=== PATIENT | female | born 1995 | race African-American/Black ===

== ENCOUNTER 2021-09-18 16:16 | Emergency (ER) | payer MEDICAID ==
[~2021-09-18] VITALS: Ht 172.7 cm; Wt 68.0 kg
[2021-09-18] MEDS ORDERED: LORAZEPAM INJ 2 MG/ML VIAL ONE (16:24)
[2021-09-18] MEDS ORDERED: diphenhydrAMINE HCL 50 MG/ML VIAL ONE (16:24)
[2021-09-18] MEDS ORDERED: HALOPERIDOL LACTATE INJ 5 MG/ML VIAL ONE (16:24)
[2021-09-18] MEDS ORDERED: IV NS 0.9% 1,000 ML IV ONE (16:30)
[2021-09-18] MEDS ORDERED: HALOPERIDOL LACTATE INJ 5 MG/ML VIAL IM ONE (16:30)
[2021-09-18] MEDS ORDERED: LORAZEPAM INJ 2 MG/ML VIAL IM ONE (16:30)
[2021-09-18] MEDS ORDERED: diphenhydrAMINE HCL 50 MG/ML VIAL IM ONE (16:30)
--- NOTE | 2021-09-18 16:33 | NUR ---
SEEN BY DR. CLIFFORD WITH ORDERS FOR: BENADRYL, ATIVAN AND HALDOL IM - ALL GIVEN - RIGHT ANTERIOR THIGH
--- NOTE | 2021-09-18 16:35 | NUR ---
RECEIVED PT 35YRS FEMALE CAME BY PRAMDIC CRYING AND SCREAMING RESPIRTION SPON AND EASY PICK HERE UP FROM [employer]OB TRANSFER PT TO RIOS CHECKED PT PACKET NO MATELE MEDITION GIVEN TO ASIF HERE TO CAME DOWN
--- NOTE | 2021-09-18 17:10 | NUR ---
pt now more alert and calm know here name fallow comand and cooprative
--- NOTE | 2021-09-18 17:20 | NUR ---
BLOOD DROW BY LAB TACH
[2021-09-18 17:27] LABS: BASOPHILS % (AUTO) 0.3 % (0.0-2.0); HEMATOCRIT 40 % (33-45); HEMOGLOBIN 13.4 g/dL (11.5-14.8); LYMPHOCYTES # (AUTO) 1.1 K/uL (0.8-4.8); LYMPHOCYTES % (AUTO) 14.8 % (20.0-44.0); MEAN CORPUSCULAR HGB CONC 34 g/dl (31.0-36.0); MEAN CORPUSCULAR VOLUME 84 fL (82-100); MONOCYTES # (AUTO) 1.1 K/uL (0.1-1.30); MONOCYTES % (AUTO) 13.9 % (2.0-12.0); NEUTROPHILS # (AUTO) 5.4 K/uL (1.8-8.9); PLATELET COUNT (AUTO) 405 K/uL (150-450); RED BLOOD CELL COUNT(AUTO) 4.69 MIL/uL (4.0-5.2); WHITE BLOOD COUNT (AUTO) 7.7 K/uL (4.3-11.0)
[2021-09-18 17:46] LABS: CALCIUM, SERUM 8.7 mg/dL (8.5-10.1); CARBON DIOXIDE 28 mmol/L (21-32); CHLORIDE 100 mmol/L (98-107); CREATININE 0.8 mg/dL (0.6-1.3); GLUCOSE 91 mg/dL (74-106); POTASSIUM 3.5 mmol/L (3.5-5.1); SODIUM SERUM 137 mmol/L (136-145); UREA NITROGEN, BLOOD 12 mg/dL (7-18)
[2021-09-18 18:02] LABS: ALANINE AMINOTRANSFERASE 20 U/L (12-78); ALBUMIN 3.2 g/dL (3.4-5.0); ALKALINE PHOSPHATASE 74 U/L (46-116); ASPARTATE AMINOTRANSFERASE 25 U/L (15-37); BILIRUBIN,DIRECT 0.1 mg/dL (0.0-0.2); BILIRUBIN,TOTAL 0.6 mg/dL (0.2-1.0); TOTAL PROTEIN, SERUM 8.2 g/dL (6.4-8.2)
[2021-09-18 18:10] LABS: ACETAMINOPHEN < 2 ug/ml (10-30); ALCOHOL, BLOOD < 3 mg/dL (0-0)
--- NOTE | 2021-09-18 18:12 | NUR ---
I&O CATHETER DONE FR # 15 RED RUBBER CATHETER OUT OUT 250 ML YELLOW CLEAR COLOR UA SENT TO LAB
--- NOTE | 2021-09-18 18:30 | NUR ---
PT ASLEEPY AND BACK TO SLEEP WHEN CALLED NAME
--- NOTE | 2021-09-18 18:55 | NUR ---
PT CALM AND EYE CONTACT [employer] CALLED PT SAID NUME BUT NOT DAITE OF
--- NOTE | 2021-09-18 19:14 | NUR ---
HAND OF TO TASHA RN PT CALM AND ASLEEPY VS STABLE
--- NOTE | 2021-09-18 19:17 | NUR ---
MANAGER IT TRAINING AT PT'S BEDSIDE
--- NOTE | 2021-09-18 19:19 | NUR ---
RECEIVED REPORT FROM EDD DIXON FOR NAJMA
--- NOTE | 2021-09-18 19:22 | NUR ---
COVID ANTIGEN SWAB COLLECTED AND SENT TO LAB
[2021-09-18 19:51] LABS: BILIRUBIN,URINE NEGATIVE (NEGATIVE); COLOR,URINE YELLOW (YELLOW); LEUKOCYTE ESTERASE ,URINE NEGATIVE (NEGATIVE); NITRITE, URINE NEGATIVE (NEGATIVE); PH,URINE 5.5 (5.0-8.0); PROTEIN,URINE 30 mg/dl (NEGATIVE); UGLUCOSE NEGATIVE (NEGATIVE); UROBILINOGEN,URINE 0.2 EU/dL (0.2)
--- NOTE | 2021-09-18 19:57 | NUR ---
PT TAKEN TO CT VIA HUSEYIN
[2021-09-18 19:59] LABS: BACTERIA,URINE RARE /HPF (None Seen); RBC,URINE 0-2 /HPF (0-2); SQUAMOUS EPITHELIAL CELL,UR 0-2 /HPF (None Seen)
[2021-09-18 20:00] LABS: MUCUS,URINE Few /LPF (None Seen)
--- NOTE | 2021-09-18 20:05 | NUR ---
PT BACK FROM CT VIA HUSEYIN
--- NOTE | 2021-09-19 04:06 | NUR ---
PT AMBULATORY TO RESTROOM WITH STEADY GAIT. ADLS DONE.
--- NOTE | 2021-09-19 04:50 | NUR ---
Patient discharged to home in stable condition. Written and verbal after care instructions given. Patient verbalizes understanding of instruction. pt ambulatory with a steady gait
[2021-09-19 05:29] VITALS: BP 125/64
== END 2021-09-19 04:50 | disposition home or self-care (01) ==
LOC: EDBD 16:18 → ER 16:18
DX: R41.82 Altered mental status, unspecified (principal); F15.129 Other stimulant abuse with intoxication, unspecified; R00.0 Tachycardia, unspecified; Z20.822 Contact with and (suspected) exposure to COVID-19
CPT/HCPCS: 36415; 70450; 80048; 80076; 80143; 80307; 80320; 81001; 82550; 82553; 84703; 85025; 87426; 93005; 96360; 96372 ×2; 99291; C9803; J1200; J1630; J2060; J7030; G0480

== ENCOUNTER 2021-09-20 08:21 | Emergency (ER) | payer MEDICAID ==
[~2021-09-20] VITALS: Ht 170.2 cm; Wt 81.6 kg
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
--- NOTE | 2021-09-20 08:39 | NUR ---
MT AT BEDSIDE
[2021-09-20 08:51] LABS: BASOPHILS # (AUTO) 0.1 K/uL (0.0-0.2); BASOPHILS % (AUTO) 0.6 % (0.0-2.0); EOSINOPHILS % (AUTO) 0.6 % (0.0-6.0); HEMATOCRIT 35 % (33-45); HEMOGLOBIN 11.8 g/dL (11.5-14.8); LYMPHOCYTES # (AUTO) 1.2 K/uL (0.8-4.8); LYMPHOCYTES % (AUTO) 12.9 % (20.0-44.0); MEAN CORPUSCULAR HGB CONC 34 g/dl (31.0-36.0); MEAN CORPUSCULAR VOLUME 85 fL (82-100); MONOCYTES # (AUTO) 1.3 K/uL (0.1-1.30); MONOCYTES % (AUTO) 13.5 % (2.0-12.0); NEUTROPHILS # (AUTO) 6.8 K/uL (1.8-8.9); NEUTROPHILS % (AUTO) 72.4 % (43.0-81.0); PLATELET COUNT (AUTO) 346 K/uL (150-450); RED BLOOD CELL COUNT(AUTO) 4.15 MIL/uL (4.0-5.2); WHITE BLOOD COUNT (AUTO) 9.4 K/uL (4.3-11.0)
--- NOTE | 2021-09-20 09:08 | NUR ---
UNABLE TO PROVIDE URINE AT THIS TIME, WILL TRY AGAIN
[2021-09-20 09:10] LABS: CALCIUM, SERUM 8.2 mg/dL (8.5-10.1); CREATININE 0.8 mg/dL (0.6-1.3); POTASSIUM 3.4 mmol/L (3.5-5.1)
--- NOTE | 2021-09-20 09:14 | NUR ---
pt in [place]
--- NOTE | 2021-09-20 10:20 | NUR ---
COVID SAMPLE OBTAINED AND SENT TO LAB
[2021-09-20] MEDS ORDERED: CEFTRIAXONE 1 G in IV D5W 50 ML IV ONE (10:30)
[2021-09-20] MEDS ORDERED: CEFTRIAXONE 1GM BAG (ER ONLY) 50 ML IV ONE (10:31)
--- NOTE | 2021-09-20 10:40 | NUR ---
BLOOD CULTURES AND LACTIC ACID OBTAINED AND SENT TO LAB
--- NOTE | 2021-09-20 10:47 | NUR ---
UNABLE TO PROVIDE URINE AT THIS TIME, WILL TRY AGAIN LATER
[2021-09-20] MEDS ORDERED: VANCOMYCIN 1 GM in IV D5W 250 ML IV ONE (11:30)
--- NOTE | 2021-09-20 12:29 | NUR ---
[facility]ED [facility] [phone] [facility] AT [facility] TIME.
--- NOTE | 2021-09-20 12:34 | NUR ---
CALLED [facility] [phone] NARESH GROVES [phone]
--- NOTE | 2021-09-20 12:48 | NUR ---
[facility] [phone] [facility] [phone]
--- NOTE | 2021-09-20 13:10 | NUR ---
[facility] [phone] NO HAND SPECIALISTS AVAILABLE PER [facility].
--- NOTE | 2021-09-20 13:13 | NUR ---
[facility] CALLED NO BED AVAILABLE PER BRAIN.
--- NOTE | 2021-09-20 16:18 | NUR ---
CALLED [facility] TRANSFER [phone] [facility] DOES NOT HAVE HAND SPECIALIST.
--- NOTE | 2021-09-20 16:36 | NUR ---
CALLED [facility] [phone] [facility] DOES NOT HAVE HAND SPECIALIST WELL
[2021-09-20 17:10] LABS: BILIRUBIN,URINE NEGATIVE (NEGATIVE); COLOR,URINE YELLOW (YELLOW); LEUKOCYTE ESTERASE ,URINE SMALL (NEGATIVE); NITRITE, URINE NEGATIVE (NEGATIVE); PROTEIN,URINE NEGATIVE (NEGATIVE); UGLUCOSE NEGATIVE (NEGATIVE)
[2021-09-20 17:19] LABS: BACTERIA,URINE 2+ /HPF (None Seen); RBC,URINE 0-2 /HPF (0-2); SQUAMOUS EPITHELIAL CELL,UR Few /HPF (None Seen); WBC,URINE 81-100 /HPF (0-3)
--- NOTE | 2021-09-20 18:08 | NUR ---
CALLED [facility] [phone] OBED FAXED CLINICALS TO [phone]
--- NOTE | 2021-09-20 18:19 | NUR ---
CALLED [facility] TRANSFER CENTER [phone] GABRIELLE FAXED CLINICALS TO [phone]
--- NOTE | 2021-09-20 18:40 | NUR ---
Jonny bridges in [facility] - 09/20/21 at 1846 by [place] URINE SAMPLE OBTAINED AND SENT TO LAB
--- NOTE | 2021-09-20 18:41 | NUR ---
GABRIELLE FROM [facility] NO SPECIALIST AVAILABLE.
--- NOTE | 2021-09-20 19:29 | NUR ---
[id number] VJ IMAGE OF THE HAND,
--- NOTE | 2021-09-20 19:44 | NUR ---
SEND THE PICTURE OF THE HAND AND R HAND IMAGING TO [facility]
[2021-09-20] MEDS ORDERED: OLANZAPINE 10 MG VIAL IM ONE ×2 (19:51→20:00)
--- NOTE | 2021-09-20 20:29 | NUR ---
HAND , THOMAS TIDWELL UNABLE TO TAKE THE CASE PER OBED
[2021-09-20] MEDS ORDERED: MORPHINE SULFATE INJ 4 MG/ML DISP.SYRIN ONE (21:06)
[2021-09-20] MEDS ORDERED: MORPHINE SULFATE INJ 2 MG/ML DISP.SYRIN IV ONE (21:30)
--- NOTE | 2021-09-20 22:35 | NUR ---
[facility] CALLED FOR HIGHER LEVEL OF CARE. NO HAND SURGEON AVAILABLE.
--- NOTE | 2021-09-20 23:01 | NUR ---
[facility] CALLED FOR HIGHER LEVEL OF CARE. 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
[2021-09-21] MEDS ORDERED: ACETAMINOPHEN ES 500 MG TABLET ONE ×2 (06:59→13:58)
[2021-09-21] MEDS ORDERED: ACETAMINOPHEN ES 500 MG TABLET PO ONE ×2 (07:00→14:00)
--- NOTE | 2021-09-21 07:07 | NUR ---
BLOOD CULTURE: GRAM POSITIVE COCCI CHAINS
--- NOTE | 2021-09-21 07:30 | NUR ---
PATIENT IN BED AWAKE, AAOX3, BREATHING EVEN AND NON LABORED
--- NOTE | 2021-09-21 08:00 | NUR ---
Pt given grooming kit/wash cloths and towels per request
--- NOTE | 2021-09-21 08:47 | NUR ---
SCOTTY GARRISON CALLED [phone] FINANCE DEPARTMENT. [facility] TO CALL FRANK GALLARDO [phone] FAX [phone] WITH AUTH & STELLA
[2021-09-21] MEDS: PIPERACILLIN /TAZOBACTAM 3.375 G in IV D5W 50 ML IV SCH ×2 (10:00→15:07)
--- NOTE | 2021-09-21 10:02 | NUR ---
BREAKFAST TRAY PROVIDED. TOLERATED WELL
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
[2021-09-21] MEDS ORDERED: PIPERACILLIN /TAZOBACTAM 3.375 G in IV D5W 50 ML IV SCH (12:00)
[2021-09-21 12:01] VITALS: BP 122/68
--- NOTE | 2021-09-21 12:42 | NUR ---
BRIQUETTE MACHINE OPERATOR HELPERIsmael Phoenix following up with pts provider [facility] for transfer to higher level of care re: Hand specialist- Awaiting call back and authorization
[2021-09-21] MEDS ORDERED: PIPERACILLIN /TAZOBACTAM 3.375 G VIAL IV ONE (13:58)
[2021-09-21] MEDS ORDERED: IBUPROFEN 400 MG TABLET PO ONE (15:00)
--- NOTE | 2021-09-21 15:02 | NUR ---
IV removed. Catheter intact and site benign. Pressure and 4x4 applied to site. No bleeding noted.
--- NOTE | 2021-09-21 15:07 | NUR ---
Patient does not wish to proceed with medical care recommended by Dr. UNDERWOOD. Patient given information related to possible complications, up to and including , which could occur as a result of leaving the hospital at this time. Patient verbalizes understanding of risks involved due to leaving against medical advice. Patient has not signed AMA form.
--- NOTE | 2021-09-21 15:11 | NUR ---
Pt decided to leave states "I will leave right now" Eloped. Dr Parrish made aware
== END 2021-09-21 15:13 | disposition left against medical advice (07) ==
LOC: ER 08:22
DX: L08.9 Local infection of the skin and subcutaneous tissue, unspecified (principal); S69.91XA Unspecified injury of right wrist, hand and finger(s), initial encounter; Y08.89XA Assault by other specified means, initial encounter; Y92.89 Other specified places as the place of occurrence of the external cause; R78.81 Bacteremia; A02.9 Salmonella infection, unspecified; F19.10 Other psychoactive substance abuse, uncomplicated; Z59.00 Homelessness unspecified; Z20.822 Contact with and (suspected) exposure to COVID-19; Z53.20 Procedure and treatment not carried out because of patient's decision for unspecified reasons
CPT/HCPCS: 36415; 70450; 71045; 73130; 80048; 80307; 80320; 81001; 83605; 84702; 85025; 87040 ×2; 87086; 87186; 87426; 96365; 96367 ×2; 96372; 96375; 99285; C9803; J0696 ×2; J2270; J2543 ×2; J3370; J3490; J7060 ×3; G0480